=== PATIENT | female | born 1935 | race Caucasian/White ===

== ENCOUNTER 2017-06-07 15:06 | Outpatient (POV) | payer MEDICARE, OTHER, SELFPAY | END 2017-06-07 16:54 | disposition home or self-care (01) | PROVIDERS: Visit Provider Podiatrist | DX: L84 Corns and callosities (principal); M20.12 Hallux valgus (acquired), left foot; M20.11 Hallux valgus (acquired), right foot; M19.171 Post-traumatic osteoarthritis, right ankle and foot | CPT/HCPCS: 99203; 73610; 73630 ==

== ENCOUNTER 2023-02-09 16:00 | Outpatient (RCR) | payer MEDICARE, SELFPAY | END 2023-02-09 17:00 | disposition home or self-care (01) | LOC: PT 16:00 | PROVIDERS: Visit Provider Family Medicine | DX: M79.605 Pain in left leg (principal); S81.802A Unspecified open wound, left lower leg, initial encounter | CPT/HCPCS: 97163; 97597 ==

== ENCOUNTER 2023-03-01 10:35 | Emergency (ER) | payer MEDICARE, SELFPAY ==
[2023-03-01 10:36] VITALS: BP 144/70; PULSE 94; RESP 20; TEMP 36.5; O2SAT 100; BMI 19.5
[2023-03-01 11:31] VITALS: BP 144/70; PULSE 57; O2SAT 98
--- NOTE | 2023-03-01 11:55 | PC.NURSE ---
Dr. Bryant at bs
[2023-03-01 12:02] VITALS: BP 149/66; PULSE 59; O2SAT 100
--- NOTE | 2023-03-01 12:11 | HMH.EDGENADL ---
Discharge Plan Disposition Patient Disposition: Home, Self-Care Prescriptions Prescriptions: New sulfamethoxazole-trimethoprim [Bactrim DS] 800-160 mg tablet 1 tab PO BID 10 Days Qty: 20 0RF amoxicillin-pot clavulanate 875-125 mg tablet 1 tab PO BID 10 Days Qty: 20 0RF No Action metoprolol tartrate 25 mg tablet 25 mg PO BID 90 Days losartan-hydrochlorothiazide 100-25 mg tablet 1 tab PO DAILY 90 Days hydralazine 25 mg tablet 25 mg PO BID 30 Days amlodipine 10 mg tablet 10 mg PO DAILY 90 Days gabapentin 300 mg capsule 300 mg PO TID 90 Days tramadol 50 mg tablet 100 mg PO TIDP PRN (Reason: arthritis/pain) 30 Days fluticasone propionate 50 mcg/actuation spray,suspension 1 spray INTRANASAL DAILY 90 Days mupirocin 2 % ointment 1 applic topical BID Qty: 30 1RF Rx Instructions: Apply to affected area up to twice daily diclofenac sodium [Voltaren] 1 % gel 4 g topical QID Qty: 30 2RF Rx Instructions: apply to single knee, ankle, foot; gently massage into area; for foot includes sole/toes/top of foot Referrals Follow up/Referrals: Jovan Nayak [Primary Care Provider] - See instructions Activity Restrictions/Add. Instructions Additional Instructions/Restrictions: Please follow-up in 2 to 3 days if you are not improving and be aware that your wound culture and Gram stain should result in 24 to 48 hours. Return with worsening redness pain high fevers or other concerns. Clinical Impressions Clinical Impression: Skin ulcer, Cellulitis of leg, Cellulitis of foot Instructions Patient Instructions: DI for Skin Abscess Discharge ED Provider: Barbara Bryant General Adult HPI General Chief complaint: Skin/Abscess/Foreign Body Stated complaint: wound on left leg, no accident Time Seen by Provider: 03/01/23 11:51 Mode of Arrival: Family Vehicle Source of Information: Patient and Relative Limitations: No Limitations Description of Symptoms (Recalled from ER Triage Doc. by RN): Pt c/o posterior LLE wound with worsening pain, swelling, and ylw/grn drainage. States the wound began over 1 mn ago when two brown spots opened up . She saw her family MD and was referred to wound speciality. Pt reports that they put a band-aid yousuf it ripped the skin causing the wound to worsen. She put a small soft dressing to avoid the band-aid to her skin. States there is pulling deep inside like in the bone . Denies fever. History of Present Illness HPI narrative: Is an 88-year-old female here with soft tissue wounds erythema swelling over the left lower extremity. States this began 1 month ago when she had some superficial skin lesions that subsequently became ulcerated she has been following up with wound clinic but last several days she has developed some redness and swelling over the distal aspect of her left lower extremity from the mid calf down to the dorsal aspect of the foot. No fevers or chills. She states she feels very tight on the posterior aspect around the Achilles tendon. No purulent drainage she overall systemically feels well. She has not tried any oral antibiotics for this yet. She denies diabetes or any immunocompromise state. Related Data Home Medications Medication Instructions Recorded Confirmed amlodipine 10 mg tablet 10 mg PO DAILY High Blood Pressure 07/18/18 03/01/23 90 days fluticasone propionate 50 1 spray intranasal DAILY Allergy 07/18/18 03/01/23 mcg/actuation nasal Symptoms 90 days spray,suspension gabapentin 300 mg capsule 300 mg PO TID neuropathy 90 days 07/18/18 03/01/23 hydralazine 25 mg tablet 25 mg PO BID High Blood Pressure 07/18/18 03/01/23 30 days losartan 100 1 tab PO DAILY High Blood Pressure 07/18/18 03/01/23 mg-hydrochlorothiazide 25 mg tablet 90 days metoprolol tartrate 25 mg tablet 25 mg PO BID High Blood Pressure 07/18/18 03/01/23 90 days tramadol 50 mg tablet 100 mg PO TIDP PRN arthritis/pain 07/18/18 09
[2023-03-01 12:23] VITALS: BP 149/66; PULSE 71; RESP 18; TEMP 36.7; O2SAT 99
--- NOTE | 2023-03-01 12:24 | PC.NURSE ---
WOUND CULTURE SENT TO LAB AND DRESSING APPLIED
--- NOTE | 2023-03-05 22:59 | PC.NURSE ---
I spoke with the pt via telephone relaying positive wound culture of psuedomonas. I instructed pt to stop her augmentin and bactrim per Dr. Bryant. I informed the pt he would be calling in levaquin 750mg x10d daily and to start it tomorrow. pt confirmed her understanding of my instructions.
== END 2023-03-01 12:24 | disposition home or self-care (01) ==
PROVIDERS: Emergency Provider Student in an Organized Health Care Education/Training Program; PCP Family Medicine
DX: L03.116 Cellulitis of left lower limb (principal); M06.9 Rheumatoid arthritis, unspecified; F32.A Depression, unspecified; E78.00 Pure hypercholesterolemia, unspecified
CPT/HCPCS: 87070; 87077; 87186; 87205; 99283; 99284

== ENCOUNTER 2023-03-04 17:39 | Emergency (ER) | payer MEDICARE, SELFPAY ==
[2023-03-04 17:47] VITALS: BP 160/53; PULSE 67; RESP 20; TEMP 37.1; O2SAT 93; BMI 23.4
[2023-03-04 18:01] VITALS: BP 172/54; PULSE 59; O2SAT 100
[2023-03-04 18:31] VITALS: BP 160/54; PULSE 61; O2SAT 100
--- NOTE | 2023-03-04 19:11 | ECG_ITS ---
APPROVED REPORT Exam: Resting ECG HR:63 bpm ECG Measurements Heart Rate 63 AXES IA 166 P 34 QRSd 83 QRS -7 QT 438 T 54 QTc 445 Conclusion SINUS RHYTHM WITH SINUS ARRHYTHMIA MINIMAL VOLTAGE CRITERIA FOR LVH, CONSIDER NORMAL VARIANT [MEETS CRITERIA IN ONE OF: R(aVL), S(V1), R(V5), R(V5/V6)+S(V1)] BORDERLINE ECG UNCONFIRMED REPORT Electronically signed by : Antwan Cummins MD 03/05/2023 06:47:29
[2023-03-04 19:24] LABS: Microscopic, Urine URINE MICROSCOPIC (MICROSCOPIC)
[2023-03-04 19:31] VITALS: BP 173/53; PULSE 65; O2SAT 97
[2023-03-04 19:54] LABS: Appearance,Urine CLEAR (Clear); Bilirubin,Urine Negative (Negative); Blood, Urine Negative (Negative); Color,Urine YELLOW (Yellow); Glucose,Urine (UA) Negative (Negative); Ketones,Urine Negative (Negative); Leukocyte Esterase,Urine Negative (Negative); Nitrate,Urine Negative (Negative); Protein,Urine Negative (Negative); Specific Gravity, Urine 1.025 (1.005-1.030); Urobilinogen,Urine 0.2 EU/dl (0.2)
[2023-03-04 20:04] VITALS: BP 179/55; PULSE 62; RESP 18; TEMP 36.9; O2SAT 96
[2023-03-04 20:12] LABS: Squamous Epithelial Cell,Urine Occasional #/hpf (0-5); WBC,Urine Occasional #/hpf (0-3)
--- NOTE | 2023-03-05 19:28 | HMH.EDGENADL ---
Discharge Plan Disposition Patient Disposition: Home, Self-Care Condition: Good Prescriptions Prescriptions: No Action metoprolol tartrate 25 mg tablet 25 mg PO BID 90 Days losartan-hydrochlorothiazide 100-25 mg tablet 1 tab PO DAILY 90 Days hydralazine 25 mg tablet 25 mg PO BID 30 Days amlodipine 10 mg tablet 10 mg PO DAILY 90 Days gabapentin 300 mg capsule 300 mg PO TID 90 Days tramadol 50 mg tablet 100 mg PO TIDP PRN (Reason: arthritis/pain) 30 Days fluticasone propionate 50 mcg/actuation spray,suspension 1 spray INTRANASAL DAILY 90 Days mupirocin 2 % ointment 1 applic topical BID Qty: 30 1RF Rx Instructions: Apply to affected area up to twice daily diclofenac sodium [Voltaren] 1 % gel 4 g topical QID Qty: 30 2RF Rx Instructions: apply to single knee, ankle, foot; gently massage into area; for foot includes sole/toes/top of foot sulfamethoxazole-trimethoprim [Bactrim DS] 800-160 mg tablet 1 tab PO BID 10 Days Qty: 20 0RF amoxicillin-pot clavulanate 875-125 mg tablet 1 tab PO BID 10 Days Qty: 20 0RF Referrals Follow up/Referrals: Jovan Nayak [Primary Care Provider] - See instructions Activity Restrictions/Add. Instructions Additional Instructions/Restrictions: Please continue to take your antibiotics as directed. Please return to the emergency department if you experience any new or worsening symptoms. Clinical Impressions Clinical Impression: Cellulitis of leg Qualifiers: Laterality: left Qualified Code(s): L03.116 - Cellulitis of left lower limb Instructions Patient Instructions: Cellulitis Discharge ED Provider: Pardeep Carter Adult HPI General Chief complaint: Recheck/Abnormal Lab/Rx Stated complaint: left leg wound Time Seen by Provider: 03/04/23 18:45 Mode of Arrival: Ambulatory Source of Information: Patient Limitations: No Limitations Description of Symptoms (Recalled from ER Triage Doc. by RN): pt to ed c/o left lower leg wound. pt states she was seen in the ed tuesday and was prescribed abx. pt states the wound has improved but does not look as good as it should. History of Present Illness HPI narrative: Patient presents for evaluation of wound to medial aspect of left lower extremity which was gradual in onset, constant, with no preceding trauma, initial onset somewhere between 1 to 2 months ago. Patient was seen in the emergency department approximately 72 hours ago and prescribed 10-day course of Bactrim and Augmentin and has been compliant with these therapies. Additionally he has been applying topical antibiotic ointment and completing routine wound care with dressing changes multiple times a day. Symptoms have gradually improved over the past 72 hours however are persistent. No pain elsewhere. No nausea or vomiting or fevers or numbness or tingling. No blood thinner usage. Patient states that she was instructed to return if her symptoms did not completely resolve within 72 hours. Patient additionally describes preceding history of multiple hemostatic skin lesions described as bruising that have been evaluated by multiple providers with no acute changes to those lesions Related Data Home Medications Medication Instructions Recorded Confirmed amlodipine 10 mg tablet 10 mg PO DAILY High Blood Pressure 07/18/18 03/01/23 90 days fluticasone propionate 50 1 spray intranasal DAILY Allergy 07/18/18 03/01/23 mcg/actuation nasal Symptoms 90 days spray,suspension gabapentin 300 mg capsule 300 mg PO TID neuropathy 90 days 07/18/18 03/01/23 hydralazine 25 mg tablet 25 mg PO BID High Blood Pressure 07/18/18 03/01/23 30 days losartan 100 1 tab PO DAILY High Blood Pressure 07/18/18 03/01/23 mg-hydrochlorothiazide 25 mg tablet 90 days metoprolol tartrate 25 mg tablet 25 mg PO BID High Blood Pressure 07/18/18 03/01/23 90 days tramadol 50 mg tablet 100 mg PO TIDP PRN arthritis/pain 07/18/18 03/01/23
== END 2023-03-04 20:04 | disposition home or self-care (01) ==
PROVIDERS: Emergency Provider Emergency Medicine; PCP Family Medicine
DX: L03.116 Cellulitis of left lower limb (principal); F32.A Depression, unspecified; E78.00 Pure hypercholesterolemia, unspecified; M06.9 Rheumatoid arthritis, unspecified
CPT/HCPCS: 81001; 93005; 99284

== ENCOUNTER 2023-03-18 05:52 | Emergency (ER) | payer MEDICARE, SELFPAY ==
--- NOTE | 2023-03-18 05:24 | PC.NURSE ---
Received report from [facility].Assigned to room 7 upon arrival.
[2023-03-18 06:01] VITALS: BP 165/105; PULSE 64; RESP 15; TEMP 36.5; O2SAT 95; BMI 20.2
--- NOTE | 2023-03-18 06:03 | HMH.EDGENADL ---
Discharge Plan Disposition Patient Disposition: Still a Patient Prescriptions Prescriptions: No Action metoprolol tartrate 25 mg tablet 25 mg PO BID 90 Days losartan-hydrochlorothiazide 100-25 mg tablet 1 tab PO DAILY 90 Days hydralazine 25 mg tablet 25 mg PO BID 30 Days amlodipine 10 mg tablet 10 mg PO DAILY 90 Days gabapentin 300 mg capsule 300 mg PO TID 90 Days tramadol 50 mg tablet 100 mg PO TIDP PRN (Reason: arthritis/pain) 30 Days fluticasone propionate 50 mcg/actuation spray,suspension 1 spray INTRANASAL DAILY 90 Days mupirocin 2 % ointment 1 applic topical BID Qty: 30 1RF Rx Instructions: Apply to affected area up to twice daily diclofenac sodium [Voltaren] 1 % gel 4 g topical QID Qty: 30 2RF Rx Instructions: apply to single knee, ankle, foot; gently massage into area; for foot includes sole/toes/top of foot sulfamethoxazole-trimethoprim [Bactrim DS] 800-160 mg tablet 1 tab PO BID 10 Days Qty: 20 0RF amoxicillin-pot clavulanate 875-125 mg tablet 1 tab PO BID 10 Days Qty: 20 0RF levofloxacin 750 mg tablet 750 mg PO DAILY 10 Days Qty: 10 0RF Activity Restrictions/Add. Instructions Additional Instructions/Restrictions: No acute musculoskeletal injury was identified today. You have 50% stenosis of your carotid vessels this can be managed medically through your primary care doctor please discuss this with him. Please return with any worsening symptoms. You were aware of your chronic kidney disease your creatinine was mildly elevated today please follow-up with your primary care doctor to ensure that this is stabilized. Clinical Impressions Clinical Impression: Acute neck pain, Acute buttock pain, CKD (chronic kidney disease), Dehydration, Carotid artery stenosis Back pain Qualifiers: Back pain location: thoracic back pain Chronicity: acute Back pain laterality: midline Qualified Code(s): M54.6 - Pain in thoracic spine Headache Qualifiers: Headache type: post-traumatic Headache chronicity pattern: acute headache Intractability: intractable Qualified Code(s): G44.311 - Acute post-traumatic headache, intractable Fall Qualifiers: Encounter type: initial encounter Qualified Code(s): W19.XXXA - Unspecified fall, initial encounter Instructions Patient Instructions: DI for Neck Pain Discharge ED Provider: Milad Porras General Adult HPI <Milad Porras MD - Last Filed: 03/18/23 06:59> General Chief complaint: Fall Stated complaint: NECK PAIN Time Seen by Provider: 03/18/23 06:00 History of Present Illness HPI narrative: 88-year-old female with history of hypertension, hyperlipidemia, rheumatoid arthritis presenting with fall. Patient states that she fell about 5 days prior to arrival. For the past couple of years, intermittently, patient has been getting dizzy and falling. Dizzy episodes last just a couple of seconds, but cause her to fall. Denies weakness on one side of the other, persistent dizziness, chest pain, shortness of breath, current dizziness. Patient states that she fell, did not hit her head, landed right on her buttocks. Has been having pain since that time and buttocks, spine, neck, head. Has not taken anything for the use pains. Related Data Home Medications Medication Instructions Recorded Confirmed amlodipine 10 mg tablet 10 mg PO DAILY High Blood Pressure 07/18/18 03/01/23 90 days fluticasone propionate 50 1 spray intranasal DAILY Allergy 07/18/18 03/01/23 mcg/actuation nasal Symptoms 90 days spray,suspension gabapentin 300 mg capsule 300 mg PO TID neuropathy 90 days 07/18/18 03/01/23 hydralazine 25 mg tablet 25 mg PO BID High Blood Pressure 07/18/18 03/01/23 30 days losartan 100 1 tab PO DAILY High Blood Pressure 07/18/18 03/01/23 mg-hydrochlorothiazide 25 mg tablet 90 days metoprolol tartrate 25 mg tablet 25 mg PO BID High Blood Pressure 07/18/18 03/01/23 90 days tramadol 50 mg ta
--- NOTE | 2023-03-18 06:12 | CT_ITS ---
FINAL REPORT TECHNIQUE: Axial images through the pelvis were performed by computed tomography. Sagittal and coronal reformatted images were obtained and reviewed. This study was performed with techniques to keep radiation doses as low as reasonably achievable (ALARA). Individualized dose reduction techniques using automated exposure control or adjustment of mA and/or kV according to the patient's size were employed. CLINICAL HISTORY: fall tuesday, midline buttock pain FINDINGS: There is streak artifact from lumbar fusion hardware. There is abnormal sclerosis of the left sacral ala with associated abnormal linear lucency, probably related to a stress fracture. There is moderate hip joint space narrowing. The femoral heads demonstrate a normal smooth contour without fracture or dislocation. IMPRESSION: Sclerosis of the left sacral ala with associated lucency, probably related to a stress fracture. Reviewed, Interpreted and Dictated by Perez Street MD Transcribed by Yissel Gordon Authenticated and [facility]
--- NOTE | 2023-03-18 06:12 | CT_ITS ---
FINAL REPORT TECHNIQUE: NASCET technique utilized for stenosis evaluation. CLINICAL HISTORY: fall tuesday, GARCIA and neck pain FINDINGS: RIGHT CAROTID: There is dense vascular calcification at the right carotid bifurcation. Stenosis measures about 50%. LEFT CAROTID: There is dense vascular calcification at the left carotid bifurcation. Stenosis measures about 50%. VERTEBRALS: The vertebral arteries are codominant. No significant stenosis is present. IMPRESSION: Dense vascular calcification at the carotid bifurcations bilaterally with stenosis measuring 50%. Reviewed, Interpreted and Dictated by Perez Street MD Transcribed by Yissel Gordon Authenticated and [facility]
--- NOTE | 2023-03-18 06:12 | CT_ITS ---
FINAL REPORT TECHNIQUE: multiple axial CT images were performed from the foramen magnum to the vertex without enhancement. Sagittal and coronal reformatted images were obtained and reviewed. This study was performed with techniques to keep radiation doses as low as reasonably achievable (ALARA). Individualized dose reduction techniques using automated exposure control or adjustment of mA and/or kV according to the patient's size were employed. CLINICAL HISTORY: fall tuesday, GARCIA and neck pain FINDINGS: There is mild atrophy. There is mild patchy decreased attenuation in the deep white matter bilaterally, probably related to chronic small vessel ischemia. There is no evidence of hemorrhage. No masses are identified. No extra-axial fluid is seen. There is mucoperiosteal thickening of the maxillary sinuses. IMPRESSION: Atrophy and chronic changes without acute process. Reviewed, Interpreted and Dictated by Perez Street MD Transcribed by Yissel Gordon Authenticated and [facility]
--- NOTE | 2023-03-18 06:12 | CT_ITS ---
FINAL REPORT TECHNIQUE: Axial images were obtained of the thoracic spine by computed tomography. Coronal and sagittal reconstruction process performed. This study was performed with techniques to keep radiation doses as low as reasonably achievable (ALARA). Individualized dose reduction techniques using automated exposure control or adjustment of mA and/or kV according to the patient's size were employed. CLINICAL HISTORY: fall tuesday, GARCIA and upper back pain FINDINGS: There is grade 2 spondylolisthesis of C7 on T1. There is moderate disc space narrowing throughout. The vertebral bodies demonstrate normal height. There is no malalignment. There are tiny posterior osteophytes in the midline at T5-6, T6-7, and T7-8. There is no acute bony abnormality. IMPRESSION: Degenerative changes without acute process. Reviewed, Interpreted and Dictated by Perez Street MD Transcribed by Yissel Gordon Authenticated and [facility]
--- NOTE | 2023-03-18 06:12 | CT_ITS ---
FINAL REPORT TECHNIQUE: Axial images were obtained of the cervical spine by computed tomography. Coronal and sagittal reconstruction process performed. This study was performed with techniques to keep radiation doses as low as reasonably achievable (ALARA). Individualized dose reduction techniques using automated exposure control or adjustment of mA and/or kV according to the patient''s size were employed. CLINICAL HISTORY: fall tuesday, GARCIA and neck pain FINDINGS: There is grade 2 spondylolisthesis of C7 on T1 with advanced hypertrophic changes. There is mild spondylolisthesis of C3 on 4. There is marked disc space narrowing from C3-4 through C6-7. Bilateral facet hypertrophy is identified. There is moderate narrowing of the neural foramina at C5-6 and C6-7 with high-grade neural foraminal narrowing at C7-T1. IMPRESSION: Multilevel degenerative changes without acute fracture. Reviewed, Interpreted and Dictated by Perez Street MD Transcribed by Yissel Gordon Authenticated and [facility]
--- NOTE | 2023-03-18 06:12 | CT_ITS ---
FINAL REPORT TECHNIQUE: Axial images were obtained of the lumbar spine by computed tomography. Coronal and sagittal reconstruction process performed. This study was performed with techniques to keep radiation doses as low as reasonably achievable (ALARA). Individualized dose reduction techniques using automated exposure control or adjustment of mA and/or kV according to the patient''s size were employed. CLINICAL HISTORY: fall tuesday, GARCIA and upper back pain FINDINGS: There is posterior and interbody fusion hardware at L3-4 and L4-5. There is minimal spondylolisthesis of L4 on 5. Kyphoplasty is seen at L1 with 30% loss of height. There are advanced hypertrophic changes of degenerative disc disease at L2-3. There is mild neural foraminal narrowing at L2-3 and L4-5. There is abnormal asymmetric sclerosis of the left sacral ala with abnormal linear lucency which may be related to a stress fracture. Findings are best seen on images 82-88. IMPRESSION: Findings may be related to a stress fracture of the left sacral ala. Degenerative changes of the lumbar spine without an acute lumbar spine fracture. Reviewed, Interpreted and Dictated by Perez Street MD Transcribed by Yissel Gordon Authenticated and [facility]
--- NOTE | 2023-03-18 06:12 | CT_ITS ---
FINAL REPORT TECHNIQUE: thin section axial CT with and without IV contrast supplemented with multiplanar 3-D reconstruction of the head. This study was performed with techniques to keep radiation doses as low as reasonably achievable, (ALARA)individualized dose reduction techniques using automated exposure control or adjustment of mA and/or kV according to the patient's size were employed. CLINICAL HISTORY: fall tuesday, GARCIA and neck pain FINDINGS: There is mild narrowing of the mid left MCA measuring less than 50%. Findings are best seen on coronal images 49 and 50 of series 03/27. No large vessel occlusion is identified. IMPRESSION: No large vessel occlusion. Mild narrowing of the mid left MCA measuring 50%. Reviewed, Interpreted and Dictated by Perez Street MD Transcribed by Yissel Gordon Authenticated and [facility]
[2023-03-18 06:30] LABS: Basophils % 0.1 % (0.1-2.0); Eosinophils # 0.1 K/mm3 (0.0-0.4); Eosinophils % 0.8 % (0.1-12.0); Hematocrit 38.9 % (37.0-47.0); Hemoglobin 11.9 g/dL (12.2-16.2); Lymphocytes # 1.2 K/mm3 (0.7-4.5); Lymphocytes % 9.6 % (10-50); Mean Corpuscular HGB Conc 30.6 g/dL (31.8-35.4); Mean Corpuscular Hemoglobin 29.2 pg (27.0-31.2); Mean Corpuscular Volume 95.5 fl (81-99); Mean Platelet Volume 8.2 fl (7.4-10.4); Monocytes % 8.2 % (1.7-9.3); Neutrophils % 81.2 % (37.0-80.0); Platelet Count 226 K/mm3 (142-424); Red Blood Count 4.08 M/mm3 (4.20-5.40); Red Cell Distribution Width 13.7 % (11.5-17.5); White Blood Count 12.3 K/mm3 (4.8-10.8)
[2023-03-18 06:38] LABS: Alanine Aminotransferase 17 U/L (12-78); Albumin Level 3.7 g/dl (3.5-5.0); Albumin/Globulin Ratio 1.2 (1.1-1.8); Alkaline Phosphatase 76 U/L (38-126); Aspartate Amino Transferase 25 U/L (14-36); Bilirubin,Total 0.4 mg/dl (0.2-1.3); Blood Urea Nitrogen 43 mg/dl (7-17); Calcium 8.9 mg/dl (8.4-10.2); Carbon Dioxide 26 mmol/L (22.0-30.0); Chloride 104 mmol/L (98-107); Creatinine Clearance Estimated 24 mL/min (50-200); Estimated Glomerular Filt Rate 33 ml/min (>60); GFR (African American) 40 ML/MIN (>60); Globulin 3.1 g/dL (1.3-3.2); Glucose 122 mg/dl (74-100); Sodium 138 mmol/L (136-145); Total Protein,Serum 6.8 g/dl (6.3-8.2)
--- NOTE | 2023-03-18 07:03 | PC.NURSE ---
received report from previous shift. Pt in CT at this time, 2 family members in room.
--- NOTE | 2023-03-18 07:03 | PC.NURSE ---
report given to Derian hydern
--- NOTE | 2023-03-18 07:20 | PC.NURSE ---
Pt back in room from CT scan
[2023-03-18 07:30] VITALS: BP 152/54; PULSE 58; O2SAT 96
[2023-03-18 08:02] VITALS: BP 162/57; PULSE 60; O2SAT 98
--- NOTE | 2023-03-18 08:09 | PC.NURSE ---
Pt provided with mouth swab and warm blanket. No other needs voiced.
[2023-03-18 08:31] VITALS: BP 169/60; PULSE 64; O2SAT 98
--- NOTE | 2023-03-18 09:05 | PC.NURSE ---
at BS at this time
[2023-03-18 09:06] VITALS: BP 148/68; PULSE 68; RESP 20; TEMP 36.8; O2SAT 94
--- NOTE | 2023-03-18 09:30 | PC.NURSE ---
Pt assisted to stand and ambulate to bathroom with use of walker. Pt sitting up in wheelchair at this time.
--- NOTE | 2023-03-18 09:53 | PC.NURSE ---
family and pt are concerned about pt going home due to her x3 falls since November of this year. CM is aware that pt and family might want assisted living or therapy to better assist pt with walking. CM will be to room to discuss further care for pt
--- NOTE | 2023-03-18 10:21 | PC.NURSE ---
care management in room
== END 2023-03-18 10:51 | disposition still patient (30) ==
PROVIDERS: Emergency Provider Emergency Medicine
DX: G44.311 Acute post-traumatic headache, intractable (principal); M54.2 Cervicalgia; E86.0 Dehydration; I65.29 Occlusion and stenosis of unspecified carotid artery; M06.9 Rheumatoid arthritis, unspecified; I10 Essential (primary) hypertension; E78.5 Hyperlipidemia, unspecified; W19.XXXA Unspecified fall, initial encounter; F32.A Depression, unspecified
CPT/HCPCS: 70450; 70496; 70498; 72125; 72128; 72131; 72192; 80053; 85025; 96361; 96374; 99285; J0131; Q9967